=== PATIENT | female | born 1990 | race Caucasian/White ===

== ENCOUNTER 2020-02-27 22:54 | Emergency (ER) | payer OTHER ==
[2020-02-27 23:02] VITALS: TEMP 98.2; BMI 30.5
--- NOTE | 2020-02-27 23:04 | PDOC ---
History of Present Illness - General Chief Complaint: Vaginal Bleeding Stated Complaint: 9 WKS PREG w/ COMPLICATIONS Time Seen by Provider: 02/27/20 23:04 - History of Present Illness Initial Comments: 02/28/20 00:04 30yo F w/ no PMHx presents w/ vaginal bleeding today. She noticed blood on tissue paper after urinating x2. Not painful, no cramping. No hx vaginal bleeding in prior . Denies cramping, lightheadedness, no pads; only tissue paper. No recent fevers, cough, sore throat. Denies trauma but had intercourse last night. Endorses some n/v that she claims is normal w/ . No diarrhea 02/28/20 00:12 Past History - Medical History Allergies/Adverse Reactions: Allergies Allergy/AdvReac Type Severity Reaction Status Date / Time No Known Allergies Allergy Verified 02/27/20 23:02 Home Medications: Ambulatory Orders Cephalexin [Keflex] 500 mg PO BID 7 Days #14 capsule 02/28/20 COPD: No - Reproductive History Is Patient Now?: Yes - Psycho-Social/Smoking History Smoking History: Never smoked - Substance Abuse Hx (Audit-C & DAST Scrn) How often the patient has a drink containing alcohol: Never Score: In Men: 4 or > Positive; In Women: 3 or > Positive: 0 Screen Result (Pos requires Nsg. Audit-10AR): Negative In the last yr the pt used illegal drug/Rx for NonMed reason: No Score: Yes response is considered Positive: 0 Screen Result (Positive result requires Nsg. DAST-10): Negative Review of Systems - Review of Systems Able to Perform ROS?: Yes Is the patient limited [place] proficient: No Constitutional: No: Diaphoresis, Fever, Loss of Appetite, Malaise, Unexplained wgt Loss HEENTM: No: Blurred Vision, Nose Pain, Nose Congestion Respiratory: No: Cough, Shortness of Breath, Hemoptysis Cardiac (ROS): No: Chest Pain, Syncope, Chest Tightness ABD/GI: Yes: Vomiting. No: Abdominal Distended, Blood Streaked Bowels, Constipated, Diarrhea, Nausea, Poor Appetite, Poor Fluid Intake, Rectal Bleeding, Abdominal cramping, Tarry Stools : Yes: Other (vaginal bleeding). No: Burning, Dysuria, Discharge, Flank Pain, Hematuria, Pain Musculoskeletal: No: Back Pain, Muscle Pain, Muscle Weakness Integumentary: No: Bruising, Pallor, Rash Neurological: No: Headache, Numbness, Unsteady Gait Endocrine: No: Symptoms Reported Hematologic/Lymphatic: No: Symptoms Reported All Other Systems: Reviewed and Negative *Physical Exam - Vital Signs Last Vital Signs Temp Pulse Resp BP Pulse Ox 98.2 F 99 H 19 121/80 99 02/27/20 22:59 02/27/20 22:59 02/27/20 22:59 02/27/20 22:59 02/27/20 22:59 - Physical Exam General Appearance: Yes: Nourished, Appropriately Dressed. No: Apparent Distress, Disheveled HEENT: positive: EOMI, Normal ENT Inspection, Normal Voice. negative: TIFFANIE, Rhinorrhea, Sinus Tenderness Neck: positive: Trachea midline. negative: Rigid Respiratory/Chest: positive: Lungs Clear, Normal Breath Sounds. negative: Chest Tender, Respiratory Distress, Accessory Muscle Use Cardiovascular: positive: Regular Rhythm, Regular Rate Female Pelvic Exam: positive: normal external exam, cervical os closed (unable to palpate), vaginal bleeding. negative: CMT, discharge, lesions, Bartholin mass, adnexal tenderness Gastrointestinal/Abdominal: positive: Normal Bowel Sounds, Soft Musculoskeletal: positive: Normal Inspection. negative: CVA Tenderness Extremity: positive: Normal Capillary Refill Integumentary: positive: Normal Color, Dry, Warm Neurologic: positive: Fully Oriented, Alert, Normal Mood/Affect ED Treatment Course - LABORATORY CBC & Chemistry Diagram: 02/27/20 23:10 02/27/20 23:10 Medical Decision Making - Medical Decision Making 02/28/20 00:17 30yo F w/ vaginal bleeding. no hx of spontaneous abortions no cramping, lightheadedness, no pads reported. Os not palpated by bimanual, and free fluid in vaginal canal obscured view via speculum. will send for US, UA, CBC, hCG, PT/PTT Discharge - Discharge Information Problems reviewed: Yes Clinical Impression/Diagnosis: Subchorionic bleed Qualifiers: Fetus number: fetus 2 of multiple gestation Trimester: first trimester Qualified Code(s): O41.8X12 - Other specified disorders of amniotic fluid and membranes, first trimester, fetus 2 - Admission No - Additional Discharge Information Prescriptions: Cephalexin [Keflex] 500 mg PO BID 7 Days #14 capsule - Follow up/Referral Referrals: Anand Santos MD [Primary Care Provider] - Bin Sparks MD [Staff Physician] - Francisca Myers MD [Staff Physician] - Jorge Andersen MD [Staff Physician] - - Patient Discharge Instructions Patient Printed Discharge Instructions: DI for Vaginal Bleeding During , Early Bleeding, DI for Vaginal Bleeding Additional Instructions: You came to the ED with vaginal bleeding. We did an ultrasound and a urine test. Your imaging showed a small subchorionic hemorrhage, and your urine suggested a possible infection. Both of these put you at a higher risk for spontaneous /miscarriage. It is important that you take the antibiotics, and that you rest your pelvis. This means no sex and no vigorous physical activity. Come back if: 1. you soak 2+ pads in 2 hours AND/OR 2. you feel lightheaded AND/OR 3. you see clots. - Post Discharge Activity
--- NOTE | 2020-02-27 23:06 | PDOC ---
Attending Attestation - Resident Resident Name: Gordon Benites - ED Attending Attestation I have performed the following: I have examined & evaluated the patient, The case was reviewed & discussed with the resident, I agree w/resident's findings & plan - HPI HPI: 02/28/20 00:21 see resident hpi - Physicial Exam PE: 02/28/20 00:21 see resident exam - Medical Decision Making 02/28/20 00:21 30-year-old female approximately 11 weeks gestational age with vaginal bleeding Ultrasound shows a live IUP measuring 11 weeks and 1 day with small implantation bleed Patient has requested follow-up at our facility though she has been seen previously at a clinic in the [place] Discharge - Discharge Information Problems reviewed: Yes Clinical Impression/Diagnosis: Subchorionic bleed - Follow up/Referral Referrals: Anand Santos MD [Primary Care Provider] - - Patient Discharge Instructions - Post Discharge Activity
[2020-02-27 23:22] LABS: BASO % 0.6 % (0-2.0); EOS % 0.4 % (0-4.5); HEMATOCRIT 39.7 % (32.4-45.2); HEMOGLOBIN 13.9 GM/dL (10.7-15.3); LYMPH % 20.9 % (8-40); MCHC 35.1 g/dl (32.0-36.0); MEAN CELL VOLUME 85.7 fl (80-96); MEAN PLT VOLUME 9.1 fl (7.5-11.1); NEUT % 72.1 % (42.8-82.8); PLATELET COUNT 182 K/MM3 (134-434); RBC 4.64 M/mm3 (3.60-5.2); RDW 12.8 % (11.6-15.6); WHITE BLOOD COUNT 9.8 K/mm3 (4.0-10.0)
[2020-02-27 23:34] LABS: INR 0.96 (0.83-1.09); PROTHROMBIN TIME (PATIENT) 11.3 SEC (9.7-13.0)
[2020-02-27 23:37] LABS: ACTIVATED PTT 27.7 SECONDS (25.2-36.5)
[2020-02-27 23:54] LABS: ALBUMIN 3.5 g/dl (3.4-5.0); BILIRUBIN,TOTAL 0.1 mg/dL (0.2-1); BLOOD UREA NITROGEN 8.6 mg/dL (7-18); CALCIUM 9.1 mg/dL (8.5-10.1); CREATININE 0.6 mg/dL (0.55-1.3); POTASSIUM 3.4 mmol/L (3.5-5.1); TOT PROT 7.2 g/dl (6.4-8.2)
[2020-02-28 00:48] LABS: EPI CELLS >36 /uL (0-25.1); HYALINE CASTS 10 /uL (0-3.1); URINE APPEARANCE CLOUDY; URINE BACTERIA 218 /uL (0-1359); URINE BILIRUBIN NEGATIVE (NEGATIVE); URINE COLOR RED; URINE GLUCOSE (UA) NEGATIVE (NEGATIVE); URINE KETONE NEGATIVE (NEGATIVE); URINE LEUK ESTERASE 1+ (NEGATIVE); URINE NITRITE NEGATIVE (NEGATIVE); URINE PROTEIN 1+ (NEGATIVE); URINE RBC 2712 /uL (0-23.9); URINE UROBILINOGEN 0.2 mg/dL (0.2-1.0); URINE WBC 28 /uL (0-25.8)
[2020-02-28] MEDS ORDERED: CEPHALEXIN MONOHYDRATE 500 MG CAPSULE (UD) PO ONE (00:57)
[2020-02-28] MEDS ORDERED: CEPHALEXIN MONOHYDRATE 500 MG CAPSULE (UD) ONE (01:09)
[2020-02-28 01:23] VITALS: BP 114/78; PULSE 73
--- OUTSIDE RECORDS SUMMARY | 2020-02-28 07:29 | XMS ---
:1990 Author Organization [facility] Support Name Relationship Address Phone [facility], [facility] [employer] Unavailable [address] [phone] [place] [address] [facility] Unavailable [address] [phone] [place] [address] [employer] [id number] [place] [address] Re-disclosure Warning The records that you are about to access may contain information from federally- assisted alcohol or drug abuse programs. If such information is present, then the following federally mandated warning applies: This information has been disclosed to you from records protected by federal confidentiality rules (42 CFR part 2). The federal rules prohibit you from making any further disclosure of this information unless further disclosure is expressly permitted by the written consent of the person to whom it pertains or as otherwise permitted by 42 CFR part 2. A general authorization for the release of medical or other information is NOT sufficient for this purpose. The Federal rules restrict any use of the information to criminally investigate or prosecute any alcohol or drug abuse patient.The records that you are about to access may contain highly sensitive health information, the redisclosure of which is protected by Article 27-F of the [facility] [place] Public Health law. If you continue you may haveaccess to information: Regarding HIV / AIDS; Provided by facilities licensed or operated by the [facility] [place] Office of Mental Health; or Provided by the [facility] [place] Office for People With Developmental Disabilities. If such information is present, then the following [facility] [place] mandated warning applies: This information has been disclosed to you from confidential records which are protected by state law. State law prohibits you from making any further disclosure of this information without the specific written consent of the person to whom it pertains, or as otherwise permitted by law. Any unauthorized further disclosure in violation of state law may result in a fine or long term sentence or both. A general authorization for the release of medical or other information is NOT sufficient authorization for further disclosure. Insurance Providers Payer name Policy type Policy ID Covered Covered democrat's Policy P jose / Coverage democrat ID relationship to [employer] ormation type [employer] [id number] SP [id number]
== END 2020-02-28 01:23 | disposition home or self-care (01) ==
LOC: JER 22:54
DX: O41.8X12 Other specified disorders of amniotic fluid and membranes, first trimester, fetus 2 (principal)
CPT/HCPCS: 36415; 76801-TC; 80053; 81003; 84702; 85025; 85610; 85730; 86850; 86900; 86901; 87086; 99284-25

== ENCOUNTER 2020-09-17 16:38 | Inpatient (IN) | payer OTHER ==
[2020-09-17 17:25] VITALS: BMI 35.0
[2020-09-17] MEDS ORDERED: OXYTOCIN 30 UNITS in 0.9% NS 30 UNIT/500 ML INFUS.BAG IVPB SCH (18:45)
[2020-09-17] MEDS: ELECTROLYTE-148 SOLN 1,000 ML IV SCH (19:00)
[2020-09-17] MEDS ORDERED: AMPICILLIN - 2 GM in SODIUM CHLORIDE 100 ML IVPB ONE (19:04)
[2020-09-17 19:07] LABS: BASO % 0.2 % (0-2.0); EOS % 0.7 % (0-4.5); HEMATOCRIT 32.2 % (32.4-45.2); HEMOGLOBIN 11.4 GM/dL (10.7-15.3); LYMPH % 17.1 % (8-40); MCH 30.8 pg (25.7-33.7); MCHC 35.3 g/dl (32.0-36.0); MEAN CELL VOLUME 87.2 fl (80-96); MEAN PLT VOLUME 8.9 fl (7.5-11.1); MONO % 6.3 % (3.8-10.2); NEUT % 75.7 % (42.8-82.8); PLATELET COUNT 141 K/MM3 (134-434); RDW 14.2 % (11.6-15.6); WHITE BLOOD COUNT 8.4 K/mm3 (4.0-10.0)
[2020-09-17] MEDS ORDERED: OXYTOCIN 30 UNITS in 0.9% NS 30 UNIT/500 ML INFUS.BAG IVPB ONE (19:14)
[2020-09-17 19:15] LABS: INR 1.02 (0.83-1.09); PROTHROMBIN TIME (PATIENT) 12.3 SEC (9.7-13.0)
[2020-09-17 19:18] LABS: ACTIVATED PTT 26.2 SECONDS (25.2-36.5)
[2020-09-17 19:29] LABS: CHLORIDE 109 mmol/L (98-107); SODIUM 142 mmol/L (136-145)
[2020-09-17 19:30] LABS: CALCIUM 8.2 mg/dL (8.5-10.1)
[2020-09-17 19:31] LABS: BLOOD UREA NITROGEN 4.6 mg/dL (7-18); CO2 23 mmol/L (21-32); GLUCOSE,RANDOM 122 mg/dL (74-106)
[2020-09-17 19:34] LABS: CREATININE 0.7 mg/dL (0.55-1.3)
[2020-09-17 20:18] LABS: ANION GAP 10 MMOL/L (8-16)
[2020-09-17] MEDS ORDERED: AMPICILLIN SODIUM 2 GM VIAL ONE (20:49)
[2020-09-17] MEDS: POTASSIUM CHLORIDE ORAL LIQUID 20 MEQ/15 ML PO SCH (22:00)
[2020-09-17] MEDS ORDERED: AMPICILLIN SODIUM 1 GM VIAL ONE (23:03)
[2020-09-18] MEDS: AMPICILLIN - 1 GM in SODIUM CHLORIDE 100 ML IVPB SCH ×2 (00:30→07:00)
[2020-09-18] MEDS: ELECTROLYTE-148 SOLN 1,000 ML IV SCH (01:00)
[2020-09-18] MEDS ORDERED: FENTANYL/BUPIVACAINE/NS/PF - PCEA - 50 ML DISP.SYRIN EP ONE (01:24)
[2020-09-18] MEDS ORDERED: PCA PUMP NR ONE (01:24)
[2020-09-18] MEDS ORDERED: MIDAZOLAM HCL 2 MG/2 ML SINGLE DOSE VIAL ONE (01:37)
[2020-09-18] MEDS ORDERED: BUPIVACAINE HCL/PF 0.25% (2.5MG/ML) 10 ML VIAL ONE (01:38)
[2020-09-18] MEDS: FENTANYL/BUPIVACAINE/NS/PF - PCEA - 50 ML DISP.SYRIN EP SCH (02:00)
[2020-09-18] MEDS ORDERED: NALOXONE HCL 0.4 MG/ML VIAL IVPUSH PRN (02:02)
[2020-09-18] MEDS ORDERED: OXYTOCIN 20 UNITS in 0.9% NS 20 UNIT/1,000 ML INFUS.BAG IV ONE (03:38)
[2020-09-18] MEDS ORDERED: BENZOCAINE 28 GM HEMORRHOIDAL OINTMENT TP PRN (06:12)
[2020-09-18] MEDS ORDERED: WITCH HAZEL 50% (TUCKS) 40 PAD/JAR PAD TP PRN (06:12)
[2020-09-18] MEDS ORDERED: BISACODYL 10 MG SUPP.RECT RC PRN (06:12)
[2020-09-18] MEDS ORDERED: BENZOCAINE 20% 57 GM BOTTLE TP PRN (06:12)
[2020-09-18] MEDS ORDERED: METHYLERGONOVINE MALEATE 0.2 MG/1 ML AMP IM PRN (06:12)
[2020-09-18] MEDS ORDERED: OXYTOCIN 20 UNITS in 0.9% NS 20 UNIT/1,000 ML INFUS.BAG IV SCH (06:15)
[2020-09-18] MEDS: IBUPROFEN 600 MG TABLET (FP) PO PRN ×2 (06:28→11:07)
[2020-09-18] MEDS: ACETAMINOPHEN 325 MG TABLET (FP) PO PRN ×2 (06:29→11:06)
[2020-09-18] MEDS: POTASSIUM CHLORIDE ORAL LIQUID 20 MEQ/15 ML PO SCH ×2 (11:06→21:27)
[2020-09-18] MEDS: SENNOSIDES/DOCUSATE COMBO (SENNA PLUS) TABLET (UD) PO PRN (21:28)
[2020-09-19 09:10] LABS: BASO % 0.4 % (0-2.0); EOS % 2.6 % (0-4.5); HEMATOCRIT 29.8 % (32.4-45.2); HEMOGLOBIN 10.5 GM/dL (10.7-15.3); LYMPH % 24.2 % (8-40); MCH 31.2 pg (25.7-33.7); MCHC 35.1 g/dl (32.0-36.0); MEAN CELL VOLUME 88.8 fl (80-96); MEAN PLT VOLUME 9.9 fl (7.5-11.1); MONO % 7.6 % (3.8-10.2); NEUT % 65.2 % (42.8-82.8); PLATELET COUNT 125 K/MM3 (134-434); RBC 3.35 M/mm3 (3.60-5.2); RDW 14.4 % (11.6-15.6); WHITE BLOOD COUNT 8.3 K/mm3 (4.0-10.0)
[2020-09-19 09:33] LABS: BLOOD UREA NITROGEN 5.8 mg/dL (7-18); CALCIUM 8.2 mg/dL (8.5-10.1)
[2020-09-19 09:36] LABS: CREATININE 0.6 mg/dL (0.55-1.3)
[2020-09-19] MEDS: IBUPROFEN 600 MG TABLET (FP) PO PRN ×2 (11:26→21:52)
[2020-09-19] MEDS: ACETAMINOPHEN 325 MG TABLET (FP) PO PRN ×2 (11:27→21:52)
[2020-09-19] MEDS: POTASSIUM CHLORIDE ORAL LIQUID 20 MEQ/15 ML PO SCH (11:37)
[2020-09-19] MEDS: SENNOSIDES/DOCUSATE COMBO (SENNA PLUS) TABLET (UD) PO PRN (21:52)
[2020-09-20] MEDS: FENTANYL/BUPIVACAINE/NS/PF - PCEA - 50 ML DISP.SYRIN EP SCH (02:15)
[2020-09-20] MEDS: IBUPROFEN 600 MG TABLET (FP) PO PRN (08:14)
[2020-09-20] MEDS: ACETAMINOPHEN 325 MG TABLET (FP) PO PRN (08:15)
[2020-09-20 09:13] VITALS: BP 105/64; PULSE 68; TEMP 997.7
== END 2020-09-20 12:15 | disposition home or self-care (01) | DRG 560 ==
LOC: JLDR 16:38 → J3W 09-18 05:55
PROVIDERS: ADMIT Specialist; ATTEND Specialist
PROC: 10E0XZZ Delivery of Products of Conception, External Approach (ICD-10-PCS; principal; 2020-09-18)
PROC: 3E033VJ Introduction of Other Hormone into Peripheral Vein, Percutaneous Approach (ICD-10-PCS; 2020-09-18)
DX: O70.0 First degree perineal laceration during delivery (principal); O99.824 Streptococcus B carrier state complicating childbirth; Z3A.39 39 weeks gestation of pregnancy; Z37.0 Single live birth
CPT/HCPCS: 36415; 59409; 80048; 85025; 85610; 85730; 86780; 86850; 86900; 86901

== ENCOUNTER 2020-11-20 23:04 | Emergency (ER) | payer OTHER ==
[2020-11-20 23:12] VITALS: BP 101/69; PULSE 81; TEMP 98.3; BMI 31.7
[2020-11-21 01:20] LABS: BASO % 0.6 % (0-2.0); EOS % 1.1 % (0-4.5); HEMATOCRIT 37.8 % (32.4-45.2); HEMOGLOBIN 12.9 GM/dL (10.7-15.3); LYMPH % 35.3 % (8-40); MCH 29.2 pg (25.7-33.7); MCHC 34.1 g/dl (32.0-36.0); MEAN CELL VOLUME 85.6 fl (80-96); MEAN PLT VOLUME 9.1 fl (7.5-11.1); MONO % 8.6 % (3.8-10.2); NEUT % 54.4 % (42.8-82.8); PLATELET COUNT 214 10^3/uL (134-434); RBC 4.42 M/mm3 (3.60-5.2); RDW 13.5 % (11.6-15.6)
[2020-11-21 01:25] LABS: INR 0.95 (0.83-1.09); PROTHROMBIN TIME (PATIENT) 11.5 SEC (9.7-13.0)
[2020-11-21 01:28] LABS: ACTIVATED PTT 28.3 SECONDS (25.2-36.5)
[2020-11-21 01:46] LABS: ALBUMIN 3.6 g/dl (3.4-5.0); CALCIUM 8.1 mg/dL (8.5-10.1)
[2020-11-21 01:47] LABS: BLOOD UREA NITROGEN 16.6 mg/dL (7-18)
[2020-11-21 01:50] LABS: CREATININE 0.8 mg/dL (0.55-1.3)
[2020-11-21 01:51] LABS: BILIRUBIN,TOTAL 0.2 mg/dL (0.2-1); TOT PROT 7.1 g/dl (6.4-8.2)
[2020-11-21] MEDS ORDERED: LACTATED RINGERS SOLUTION 1000 ML INFUS.BAG IV ONE (02:45)
== END 2020-11-21 04:18 | disposition home or self-care (01) ==
LOC: JER 23:04
DX: N93.9 Abnormal uterine and vaginal bleeding, unspecified (principal)
CPT/HCPCS: 36415; 76830-TC; 80053; 84702; 85025; 85610; 85730; 86850; 86900; 86901; 99284-25